=== PATIENT | male | born 1995 | race Caucasian/White ===

== ENCOUNTER 2019-01-03 11:29 | Emergency (ER) | payer OTHER ==
[2019-01-03 11:40] VITALS: BP 139/96
--- NOTE | 2019-01-03 11:47 | EDPHY ---
H & P Stated Complaint: pipe to nose . ~ 1045 .denies LOC . Time Seen by Provider: 01/03/19 11:42 HPI/ROS: CHIEF COMPLAINT: Nasal trauma HISTORY OF PRESENT ILLNESS: The patient is a 23-year-old man who was at work cutting a piece of pipe that was pressurized with air. He states that when he cut the pipe loose the piece that he was cutting flew up and hit him in the nose. No injury to his head or forehead. No vision changes. No headache. No neck pain. He has epistaxis from the right nares and abrasion across his nose. No deformity. Moderate swelling. He does report a previous nasal fracture and surgery several years ago. Severity: Moderate Modifying factors: Bleeding has stopped REVIEW OF SYSTEMS: Constitutional: denies: chills, fever, recent illness, recent injury EENTM: See HPI Respiratory: denies: cough, shortness of breath Cardiac: denies: chest pain, irregular heart rate, lightheadedness, palpitations Gastrointestinal/Abdominal: denies: abdominal pain, diarrhea, nausea, vomiting, blood streaked stools Genitourinary: denies: dysuria, frequency, hematuria, pain Musculoskeletal: denies: joint pain, muscle pain Skin: denies: lesions, rash, jaundice, bruising Neurological: denies: headache, numbness, paresthesia, tingling, dizziness, weakness Hematologic/Lymphatic: denies: blood clots, easy bleeding, easy bruising Immunologic/allergic: denies: HIV/AIDS, transplant 10 systems reviewed and negative except as noted EXAM: GENERAL: Well-appearing, well-nourished and in no acute distress. HEAD: Atraumatic, normocephalic. EYES: Pupils equal round and reactive to light, extraocular movements intact, sclera anicteric, conjunctiva are normal. ENT: TMs normal, dry epistaxis in right nares. No visible septal hematoma. No visible deviation. Able to breathe through nares easily. Abrasion to outer nose. He does have some swelling to the lower half of his nose. No swelling / deformity or crepitus at the bony aspect of the nasal bridge. Moist mucous membranes. NECK: Normal range of motion, supple without lymphadenopathy or JVD. LUNGS: Breath sounds clear to auscultation bilaterally and equal. No wheezes rales or rhonchi. HEART: Regular rate and rhythm without murmurs, rubs or gallops. ABDOMEN: Soft, nontender, normoactive bowel sounds. No guarding, no rebound. No masses appreciated. BACK: No CVA tenderness, no spinal tenderness, step-offs or deformities EXTREMITIES: Normal range of motion, no pitting or edema. No clubbing or cyanosis. NEUROLOGICAL: Cranial nerves II through XII grossly intact. Normal speech, normal gait. 5/5 strength, normal movement in all extremities, normal sensation , normal reflexes PSYCH: Normal mood, normal affect. SKIN: Warm, dry, normal turgor, no visible rashes or lesions. Source: Patient Exam Limitations: No limitations - Personal History Current Tetanus/Diphtheria Vaccine: No Current Tetanus Diphtheria and Acellular Pertussis (TDAP): No - Medical/Surgical History Hx Asthma: No Hx Chronic Respiratory Disease: No Hx Diabetes: No Hx Cardiac Disease: No Hx Renal Disease: No Hx Cirrhosis: No Hx Alcoholism: No Hx HIV/AIDS: No Hx Splenectomy or Spleen Trauma: No Other PMH: nose surgery - Family History Significant Family History: No pertinent family hx - Social History Smoking Status: Light smoker Alcohol Use: None Constitutional: Initial Vital Signs Temperature (C) 36.7 C 01/03/19 11:35 Heart Rate 95 01/03/19 11:35 Respiratory Rate 14 01/03/19 11:35 Blood Pressure 139/96 H 01/03/19 11:35 O2 Sat (%) 99 01/03/19 11:35 O2 Delivery Mode Room Air Allergies/Adverse Reactions: No Known Allergies Allergy (Unverified 01/03/19 11:40) Home Medications: Medication Instructions Recorded NK [No Known Home Meds] 01/03/19 Medical Decision Making ED Course/Re-evaluation: The patient has an abrasion and some swelling to lower half of his nose as well as epistaxis to the right nares which is resolved spontaneously. No visible nasal hematoma. The bony portion of his nose does not feel broken and does not appear crooked. He is able to breathe without difficulty. He is concerned however because he has had a broken nose in the past that has required surgery. I told him the clinically I do not think that his nose is broken but advised him to follow up with ENT in the next few days for re-evaluation after the swelling has improved. He understands and agrees with this plan. We did discuss possibly performing x-rays although they her unreliable. The best option is typically CT scan although considering the amount of radiation and low clinical suspicion we selected not to perform CT scan. Differential Diagnosis: Partial list of the Differential diagnosis considered include but were not limited to; nasal contusion, epistaxis, abrasion and although unlikely based on the history and physical exam, I also considered nasal fracture, septal hematoma, concussion. I discussed these differential diagnoses and the plan with the patient as well as the usual and expected course. The patient understands that the diagnosis is provisional and that in medicine we are not always correct and that further workup is often warranted. Usual and customary warnings were given. All of the patient's questions were answered. The patient was instructed to return to the emergency department should the symptoms at all worsen or return, otherwise to followup with the physician as we discussed. - Data Points Medications Given: Discontinued Medications Ibuprofen (Motrin) 600 mg PO EDNOW ONE Stop: 01/03/19 12:22 Last Admin: 01/03/19 12:24 Dose: 600 mg Departure - Departure Disposition: Home, Routine, Self-Care Clinical Impression: Nosebleed Nasal laceration Qualifiers: Encounter type: initial encounter Qualified Code(s): S01.21XA - Laceration without foreign body of nose, initial encounter Condition: Fair Instructions: Nosebleed (ED) Referrals: NONE *PRIMARY CARE P,. [Primary Care Provider] - As per Instructions Seymour Torres MD [Medical Doctor] - 2-3 days without fail
[2019-01-03] MEDS ORDERED: IBUPROFEN 600 MG TAB PO ONE (12:21)
== END 2019-01-03 12:25 | disposition home or self-care (01) ==
LOC: CED 11:29
DX: S01.21XA Laceration without foreign body of nose, initial encounter (principal); R04.0 Epistaxis; W26.8XXA Contact with other sharp object(s), not elsewhere classified, initial encounter; Y99.0 Civilian activity done for income or pay
CPT/HCPCS: 99282-ER